=== PATIENT | male | born 1960 | race Caucasian/White ===

== ENCOUNTER → 2019-03-19 | Outpatient (CLI) | payer OTHER | LOC: CAT 10:32 | DX: Z13.6 Encounter for screening for cardiovascular disorders (principal); E78.00 Pure hypercholesterolemia, unspecified; I25.10 Atherosclerotic heart disease of native coronary artery without angina pectoris ==

== ENCOUNTER → 2019-08-21 | Outpatient (CLI) | payer OTHER | LOC: LAB 09:00 | DX: Z03.818 Encounter for observation for suspected exposure to other biological agents ruled out (principal) ==